=== PATIENT | female | born 1985 | race Caucasian/White ===

== ENCOUNTER 2018-02-15 07:53 | Observation (INO) | payer OTHER ==
[2018-02-15] MEDS ORDERED: LIDOCAINE 1% (MPF) 30 ML INJ (08:06)
[2018-02-15] MEDS ORDERED: MIDAZOLAM 1 MG/ML 2 ML INJ (09:38)
[2018-02-15] MEDS ORDERED: DEXAMETHASONE 4 MG/ML 1 ML INJ (09:46)
[2018-02-15] MEDS ORDERED: FAMOTIDINE 20 MG INJ (09:46)
[2018-02-15] MEDS ORDERED: CEFAZOLIN 1 GM INJ ×2 (09:46→11:39)
[2018-02-15] MEDS ORDERED: LIDOCAINE 2% (SDV) 5 ML INJ (09:46)
[2018-02-15] MEDS ORDERED: ONDANSETRON 4 MG INJ (09:46)
[2018-02-15] MEDS ORDERED: PROPOFOL 40 ML (09:46)
[2018-02-15] MEDS ORDERED: FENTAnyl 50 MCG/ML VIAL ×2 (09:49→10:18)
[2018-02-15] MEDS ORDERED: morphine (1 MG/ML) 10ML SYRINGE IV ×2 (10:00)
[2018-02-15] MEDS ORDERED: OXYCODONE/ACETAMINOPHEN (5/325) TAB PO ×2 (10:00)
[2018-02-15] MEDS ORDERED: ONDANSETRON 4 MG INJ IV ×2 (10:00→12:00)
[2018-02-15] MEDS ORDERED: HYDROmorphONE 1 MG/5 ML IV SYRINGE IV (10:00)
[2018-02-15] MEDS ORDERED: LABETALOL HCL 20MG INJ IV (10:00)
[2018-02-15] MEDS ORDERED: DIPHENHYDRAMINE 50 MG INJ IV ×2 (10:00→12:00)
[2018-02-15] MEDS ORDERED: MEPERIDINE 25 MG INJ IV (10:00)
[2018-02-15] MEDS ORDERED: FENTAnyl 50 MCG/ML VIAL IV ×2 (10:00)
[2018-02-15] MEDS ORDERED: ALBUTEROL 0.083% (NEB) 2.5 MG/3 ML AMP HHN (10:00)
[2018-02-15] MEDS ORDERED: KETOROLAC 30 MG INJ (10:12)
[2018-02-15] MEDS: BUPIVACAINE 0.5% (SDV) 30 ML INJ (10:18)
[2018-02-15] MEDS ORDERED: ACETAMINOPHEN 1000MG/100ML IV 100 ML (10:46)
[2018-02-15] MEDS ORDERED: EPHEDrine SULFATE 50 MG/5 ML SYG (11:39)
[2018-02-15] MEDS ORDERED: DIPHENHYDRAMINE 25 MG CAP PO (12:00)
[2018-02-15] MEDS ORDERED: ACETAMINOPHEN 325 MG TAB PO (12:00)
[2018-02-15] MEDS ORDERED: HYDROCODONE/APAP (5/325) TAB PO (12:00)
[2018-02-15] MEDS ORDERED: KETOROLAC 30 MG INJ IV (12:00)
[2018-02-15] MEDS: HYDROmorphONE 1 MG/5 ML IV SYRINGE IV ×2 (12:35→13:07)
[2018-02-15] MEDS: HYDROCODONE/APAP (10/325) TAB PO ×2 (14:56→21:17)
[2018-02-15] MEDS: LACTATED RINGER'S 1,000 ML IV (17:16)
[2018-02-15] MEDS: morphine 2 MG INJ IV ×3 (17:20→23:08)
[2018-02-15] MEDS: ALPRAZOLAM 1 MG TAB PO (20:52)
[2018-02-15] MEDS: FAMOTIDINE 20 MG TAB PO (21:17)
[2018-02-16] MEDS: LACTATED RINGER'S 1,000 ML IV ×2 (05:13→18:10)
[2018-02-16] MEDS: FAMOTIDINE 20 MG TAB PO (08:06)
[2018-02-16] MEDS: HYDROCODONE/APAP (10/325) TAB PO ×2 (08:07→12:53)
[2018-02-16 08:58] LABS: ADD MAN DIFF? NO
[2018-02-16 09:00] LABS: WHITE BLOOD COUNT 8.5 10^3/ul (4.8-10.8)
[2018-02-16 09:00] LABS: BASOPHIL # 0.1 10^3/ul (0.0-0.1); BASOPHILS % 0.6 % (0.0-2.0); EOSINOPHILS # 0.1 10^3/ul (0.0-0.5); EOSINOPHILS % 0.7 % (0.0-7.0); HEMATOCRIT 32.6 % (37.0-47.0); HEMOGLOBIN 10.2 g/dl (12.0-16.0); LYMPHOCYTES # 2.3 10^3/ul (0.8-2.9); LYMPHOCYTES % 27.2 % (15.0-51.0); MEAN CORPUSCULAR HEMOGLOBIN 28.7 pg (29.0-33.0); MEAN CORPUSCULAR HGB CONC 31.3 g/dl (32.0-37.0); MEAN CORPUSCULAR VOLUME 91.6 fl (82.0-101.0); MEAN PLATELET VOLUME 11.7 fl (7.4-10.4); MONOCYTE # 0.7 10^3/ul (0.3-0.9); NEUTROPHIL # 5.4 10^3/ul (1.6-7.5); NEUTROPHILS % 63.1 % (39.0-77.0); PLATELET COUNT 152 10^3/UL (140-415); RED BLOOD COUNT 3.56 10^6/ul (4.20-5.40)
[2018-02-16 09:22] LABS: ANION GAP 12 (8-16); BLOOD UREA NITROGEN 7 mg/dl (7-20); CALCIUM 8.8 mg/dl (8.4-10.2); CARBON DIOXIDE 26 mmol/L (21-31); CHLORIDE 108 mmol/L (97-110); CREATININE 0.53 mg/dl (0.44-1.00); GLUCOSE 116 mg/dl (70-220); POTASSIUM 3.8 mmol/L (3.5-5.1); SODIUM 142 mmol/L (135-144)
[2018-02-16] MEDS: morphine 2 MG INJ IV ×2 (10:56→17:00)
== END 2018-02-16 18:45 | disposition home or self-care (01) ==
LOC: SDS 07:53 → REC 11:48 → MS1 14:20
DX: N75.0 Cyst of Bartholin's gland (principal)
CPT/HCPCS: 56740; 80048; 85025; 88305